=== PATIENT | female | born 1955 | race African-American/Black ===

== ENCOUNTER → 2023-05-11 | Outpatient (CLI) | payer OTHER, MEDICARE | END | disposition home or self-care (01) | LOC: RAH 11:57 | PROVIDERS: ATTEND Family Medicine | DX: R06.02 Shortness of breath (principal) | CPT/HCPCS: 71046 ==

== ENCOUNTER → 2023-05-31 | Outpatient (CLI) | payer OTHER, MEDICARE | END | disposition home or self-care (01) | LOC: RAH 10:00 | PROVIDERS: ATTEND Family Medicine | DX: R60.0 Localized edema (principal) | CPT/HCPCS: 93970 ==

== ENCOUNTER → 2023-07-13 | Outpatient (CLI) | payer OTHER, MEDICARE ==
[~2023-07-13] MED LIST: IOHEXOL 350 MG/ML 100ML INFUS..BTL IV ONE
== END | disposition home or self-care (01) ==
LOC: RAH 06-23 10:39
PROVIDERS: ATTEND Family Medicine
DX: N20.0 Calculus of kidney (principal); R06.02 Shortness of breath; Z90.12 Acquired absence of left breast and nipple
CPT/HCPCS: 71260; Q9967